=== PATIENT | female | born 1970 | race Caucasian/White ===

== ENCOUNTER → 2019-11-18 | Outpatient (CLI) | payer OTHER ==
[~2019-11-18] MED LIST: ADDERALL 20 MG20 M1 PO; CLONAZEPAM 1 MG1 M1 PO; COLACE100 MG PO; CYCLOBENZAPRINE10 MG PO; CYMBALTA60 MG PO; ETHINYL ESTRADIOL PO; FLOVENT HFA 4444 MCG INH; IMITREX100 MG PO; LEVALBUTEROL INH; NAPROSYN500 MG PO; OMEPRAZOLE40 MG PO; PREDNISONE; PROBIOTIC1 EAC7 PO; PROPRANOLOL 4040 M1 PO; REXULTI1 MG PO; SINGULAIR 10 MG10 M1 PO; TRAMADOL 50 MG50 MG PO; TRAZODONE HCL100 MG PO; VITAMIN B-1100 M2 PO; XOPENEX0.63 MG/3 INH; ZYRTEC 10 MG TA10 MG PO
== END ==
LOC: M.LAB 07:39
PROVIDERS: ATTEND Orthopaedic Surgery
DX: Z01.812 Encounter for preprocedural laboratory examination (principal); Z11.59 Encounter for screening for other viral diseases

== ENCOUNTER → 2019-11-23 | Day surgery (SDC) | payer OTHER ==
[~2019-11-23] MED LIST changes: +ALEVE220 MG PO; +NORCO 5-325 TA1 EAC2 PO; +TOPAMAX100 MG PO
--- NOTE | ~2019-11-23 | OP ---
[address] [address] OPERATIVE REPORT Name: JUSTYNASAMANTA DEWEY Room: [facility]#: [id number] Admission: 11/23/19 Attend Phys: Clyde Liu II Discharge: Date of : 74 Report #: [id number] THIS REPORT FOR: //name// cc: Physician not on staff Physician not on staff ~ THIS REPORT FOR: //name// CC: JHOANA MENDOZA Physician staff Clyde Liu DATE OF SERVICE: 11/23/2019 PREOPERATIVE DIAGNOSIS: Right knee lateral meniscus tear. POSTOPERATIVE DIAGNOSES: 1. Right knee lateral meniscus tear. 2. Grade 3 chondromalacia medial femoral condyle. PROCEDURES PERFORMED: 1. Right knee arthroscopic surgery with partial lateral meniscectomy. 2. Abrasion chondroplasty of medial femoral condyle down to bleeding bone. SURGEON: Clyde Liu II, DO SENIOR DIRECTOR: ELDER Wilcox. ANESTHESIA: Per operative record. ESTIMATED BLOOD LOSS: Minimal. ANTIBIOTICS: Per operative record. DRAINS: None. COMPLICATIONS: None. CONDITION OF THE PATIENT: Stable to recovery room. DESCRIPTION OF PROCEDURE: The patient was taken to the operative suite and placed supine on the operating table, given appropriate anesthesia. The patient's affected lower extremity was sterilely prepped and draped with well-padded knee arthroscopic johnson. Surgery began by medial and lateral portal incision. The arthroscope was advanced in the joint. There was shown to be grade 3 chondromalacia due to medial femoral condyle. Utilizing a shaver, an abrasion chondroplasty was performed down to bleeding bone and then smoothed [facility] [address] [place] [address] OPERATIVE REPORT Name: SAMANTA JANSEN Gretchen Room: [facility]#: [id number] Admission: 11/23/19 Attend Phys: Clyde Liu II Discharge: Date of : 74 Report #: [id number] using Coblation wand. Lateral meniscus was probed and shown to have a tear to the lateral posterior horn seen around to the lateral margin. Utilizing chavo and baskets, a partial meniscectomy was performed to resect the torn flap along the lateral meniscus and smoothed utilizing Coblation wand. A medial meniscus probed and shown to be intact. ACL and PCL were intact. Final irrigation was then performed of the knee. The knee was then drained off arthroscopic fluid, closed with 4-0 nylon in simple fashion. Dermabond and sterile dressing applied. The patient transported to recovery room in stable condition. Counts were correct throughout the procedure. By: [id number] Liu II, DO /nt
[2019-11-23 09:40] LABS: HEMATOCRIT 42.1 % (37.0-47.0); HEMOGLOBIN 14.4 gm/dL (12.0-15.0)
--- NOTE | 2019-11-23 10:30 | EKG ---
[place] [address] ELECTROCARDIOGRAM REPORT Name: SAMANTA JANSEN Room: [facility]#: [id number] Admission: 11/23/19 Attend Phys: Clyde Liu, Discharge: Date of : 74 Date of Service: 11/23/19932 Report #: [id number] THIS REPORT FOR: //name// [facility] Test Date: 2019-11-23 Test Time: 09:33:37 Pat Name: SAMANTA JANSEN Department: Room: Gender: F Exchange Architect: : 1970 Requested By: Clyde Liu Order Number: [id number] Ambika MD: Chaka Hernandez Measurements Intervals [place] Rate: 78 P: 23 AL: 118 QRS: 35 QRSD: 90 T: 46 QT: 358 QTc: 408 Interpretive Statements Sinus rhythm Borderline short AL interval No previous ECG available for comparison Electronically Signed On 11-23-2019 10:30:10 CDT by Chaka Hernandez [email or web address] <ELECTRONICALLY SIGNED> By: Chaka Hernandez MD, [facility] 11/23/190 2 2 Chaka Hernandez MD, FACC /EPI
== END | disposition home or self-care (01) ==
LOC: M.SUR 05:12
PROVIDERS: ATTEND Orthopaedic Surgery
DX: S83.281A Other tear of lateral meniscus, current injury, right knee, initial encounter (principal); M94.261 Chondromalacia, right knee; Z79.899 Other long term (current) drug therapy; Z98.890 Other specified postprocedural states; X58.XXXA Exposure to other specified factors, initial encounter; Y93.89 Activity, other specified; Y92.89 Other specified places as the place of occurrence of the external cause; Y99.8 Other external cause status

== ENCOUNTER → 2019-12-08 | Outpatient (CLI) | payer OTHER | LOC: M.LAB 09:10 | PROVIDERS: ATTEND Orthopaedic Surgery | DX: Z01.812 Encounter for preprocedural laboratory examination (principal); Z20.828 Contact with and (suspected) exposure to other viral communicable diseases ==

== ENCOUNTER → 2019-12-13 | Day surgery (SDC) | payer OTHER ==
[~2019-12-13] MED LIST changes: +LORCET 5-325 M1 EACH PO
--- NOTE | ~2019-12-13 | OP ---
[address] [address] OPERATIVE REPORT Name: SAMANTA JANSEN Room: [facility]#: [id number] Admission: 12/13/19 Attend Phys: Clyde Liu II Discharge: Date of : 74 Report #: [id number] THIS REPORT FOR: //name// cc: JHOANA MENDOZA MD Physician not on staff ~ CC: JHOANA MENDOZA Physician staff Clyde Liu DATE OF SERVICE: 12/13/2019 PREOPERATIVE DIAGNOSIS: Left knee lateral patellar tilt. POSTOPERATIVE DIAGNOSES: 1. Left knee lateral patellar tilt with lateral tracking patella. 2. Grade 3 chondromalacia, medial femoral condyle. 3. Grade 3 chondromalacia, lateral femoral condyle. PROCEDURES PERFORMED: 1. Left knee arthroscopic surgery with lateral release. 2. Abrasion chondroplasty of medial femoral condyle down to bleeding bone. 3. Abrasion chondroplasty of lateral femoral condyle down to bleeding bone. SURGEON: Clyde Liu II, DO VETERINARY PRACTITIONER: ELDER Wilcox ANESTHESIA: Per operative record. ESTIMATED BLOOD LOSS: Minimal. ANTIBIOTICS: Per operative record. DRAINS: None. COMPLICATIONS: None. CONDITION OF THE PATIENT: Stable to recovery room. DESCRIPTION OF PROCEDURE: The patient was taken to the operative suite and placed supine on the operating table, given appropriate anesthesia. The patient's affected lower extremity was sterilely prepped and draped and a well-padded knee arthroscopic johnson was applied. Surgery began by medial and lateral portal incision. The arthroscope was advanced within the joint. There was grade 3 chondromalacia to the medial femoral condyle. Utilizing a shaver, an abrasion chondroplasty was performed to bleeding bone and then smoothed [address] [address] OPERATIVE REPORT Name: JUSTYNA,SAMANTA R Room: [facility]#: [id number] Admission: 12/13/19 Attend Phys: Clyde Liu II Discharge: Date of : 74 Report #: [id number] utilizing Coblation wand. There was a grade 3 chondromalacia of lateral femoral condyle. Utilizing a shaver, abrasion chondroplasty was performed to bleeding bone and then smoothed using Coblation wand. A medial meniscus and lateral meniscus were both intact to probing. ACL and PCL were intact. There was shown to be significant lateral tilt to patella with lateral tracking and translation. Utilizing a cautery wand, a lateral release was performed along the lateral patellar retinaculum. This was shown to have improved alignment and decreased patellar tilt and translation. Final irrigation was then performed of the knee. The knee was drained off arthroscopic fluid, closed with 4-0 nylon in simple fashion. Dermabond and sterile dressing applied. The patient transported to recovery room in stable condition. Counts were correct throughout the procedure. By: [id number] Liu II, DO /nt
[2019-12-13 09:10] LABS: HEMOGLOBIN 12.7 gm/dL (12.0-15.0)
== END | disposition home or self-care (01) ==
LOC: M.SUR 08:28
PROVIDERS: ATTEND Orthopaedic Surgery
DX: M22.2X2 Patellofemoral disorders, left knee (principal); M94.262 Chondromalacia, left knee; M25.462 Effusion, left knee; J45.909 Unspecified asthma, uncomplicated; M19.90 Unspecified osteoarthritis, unspecified site; F32.9 Major depressive disorder, single episode, unspecified; I10 Essential (primary) hypertension; Z79.899 Other long term (current) drug therapy; Z98.890 Other specified postprocedural states